=== PATIENT | male | born 1970 | race Caucasian/White ===

== ENCOUNTER 2017-05-27 16:07 | Emergency (ER) | payer OTHER ==
[~2017-05-27] VITALS: Ht 190.5 cm; Wt 89.0 kg
[~2017-05-27 16:07] MED LIST: ALPR2TAB PO; AMPH20TA2 PO; BACTDS PO; CEPH-443 PO; HAL1 PO; HYDR-906 PO; MIRT15TA5 PO; NAPR-688 PO; TRAZ300T15 PO
[2017-05-27 16:13] VITALS: Ht 190.5 cm; Wt 89.0 kg
[2017-05-27 17:16] VITALS: BP 138/90; PULSE 110; RESP 16
[2017-05-27] MEDS ORDERED: HAL1 PO (18:15)
[2017-05-27] MEDS ORDERED: TRAZ300T15 PO (18:15)
[2017-05-27] MEDS ORDERED: MIRT30TA5 PO (18:15)
--- NOTE | 2017-05-27 18:20 | ERD ---
ER Documentation Chief Complaint Date/Time DATE: 05/27/17 TIME: 18:18 Chief Complaint HEARING VOICES , DENIES SI/HI , OUT OF MEDS X 1 WEEK HPI 46-year-old male who presents to the emergency room stating he needs medication refill. The patient states that he was recently kicked out of his sober living facility. Patient does have baseline Tourette's and psychosis. He denies any suicidal or homicidal thoughts. He is asking for refill of Haldol, trazodone, mirtazapine. The patient states that he can go stay with family and friends in the time being. He has no other complaints. No fevers chills chest pain or shortness of breath no headache. ROS All systems reviewed and are negative except as per history of present illness. Medications Home Meds Active Scripts Mirtazapine* (Mirtazapine*) 30 Mg Tablet, 30 MG PO HS for 30 Days, TAB Prov:MARIA ESTHER KESSLER MD 05/27/17 Trazodone Hcl* (Trazodone Hcl*) 300 Mg Tablet, 300 MG PO QHS, #30 TAB Prov:MARIA ESTHER KESSLER MD 05/27/17 Haloperidol* (Haldol*) 1 Mg Tab, 1 MG PO BID for 30 Days, TAB Prov:MARIA ESTHER KESSLER MD 05/27/17 Naproxen* (Naproxen*) 500 Mg Tablet, 500 MG PO BID Y for PAIN, #20 TAB Prov:JAY EDUARDO DO 10/14/16 Hydrocodone/Acetaminophen ([place] 5-325 Tablet) 1 Each Tablet, 1 EACH PO Q6, #14 TAB Prov:JAY EDUARDO DO 10/14/16 Cephalexin* (Keflex*) 500 Mg Capsule, 500 MG PO QID for 10 Days, CAP Prov:JAY EDUARDO DO 10/14/16 Sulfamethoxazole-Trimethoprim* (Bactrim* DS) 800-160 Mg Tab, 1 TAB PO BID for 10 Days, TAB Prov:JAY EDUARDO DO 10/14/16 Reported Medications Haloperidol* (Haldol*) 1 Mg Tab, 1 MG PO BID, TAB 10/14/16 Mirtazapine* (Mirtazapine*) 15 Mg Tablet, 15 MG PO HS, TAB 10/14/16 Alprazolam* (Xanax*) 2 Mg Tablet, 2 MG PO Q8H Y for ANXIETY, TAB 10/14/16 Amphet Vsm-Mvpkjy-G-Amphet (Adderall) 20 Mg Tablet, 20 MG PO DAILY, TAB 10/14/16 Trazodone Hcl* (Trazodone Hcl*) 300 Mg Tablet, 300 MG PO QHS, #30 TAB 10/14/16 Allergies Allergies: Coded Allergies: amoxicillin (Verified Allergy, Mild, 10/11/16) latex (Verified Allergy, Mild, 10/11/16) PMhx/Soc History of Surgery: No (L eye corneal transplant) Anesthesia Reaction: No (unknown ) Hx Neurological Disorder: No Hx Respiratory Disorders: No Hx Cardiac Disorders: No Hx Psychiatric Problems: No 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 Eyes: Pupils equally reactive, EOM intact ENT: Moist mucous membranes Neck: Supple, no lymphadenopathy Respiratory: Lungs clear bilaterally, no distress Cardiovascular: RRR, no murmurs, rubs, or gallops Abdominal: Soft, non-tender, non-distended, no peritoneal signs : Deferred MSK: No edema, no unilateral swelling, 5/5 strength Neurologic: Alert and oriented, moving all extremities, normal speech, no focal weakness, no cerebellar signs Skin: No rash Psych: Stigmata of Tourette's, no suicidal homicidal thoughts Procedures/MDM The patient is stable Tourette's and underlying psychiatric illness without evidence of acute psychosis. He is not a danger to himself or others. He is asking for medication refill. He has a safe place to stay this evening. Initially I was attempting to try to get a social service liaison to see the patient with a social service liaison has gone home today. I can refill 1 month worth of the patient's prescription which is agreeable to him. The patient has no evidence of acute psychosis and no evidence that he requires acute psychiatric evaluation and/or treatment and replacement. We discussed follow up with the patient's primary care doctor within 24 to 48 hours as needed. We also discussed return to the emergency room for worsening symptoms or worsening condition. Outpatient referral: [None required] Discharge Medications: Haldol 1 mg twice daily Trazodone 300 mg nightly Mirtazapine 30 mg nightly Departure Diagnosis: Primary Impression: Encounter for medication refill Condition: Stable Patient Instructions: Medical Screening Exam, Nonurgent Referrals: [facility] YOU HAVE RECEIVED A MEDICAL SCREENING EXAM AND THE RESULTS INDICATE THAT YOU DO NOT HAVE A CONDITION THAT REQUIRES URGENT TREATMENT IN THE EMERGENCY DEPARTMENT. FURTHER EVALUATION AND TREATMENT OF YOUR CONDITION CAN WAIT UNTIL YOU ARE SEEN IN YOUR DOCTORS OFFICE WITHIN THE NEXT 1-2 DAYS. IT IS YOUR RESPONSIBILITY TO MAKE AN APPOINTMENT FOR FOLOW-UP CARE. IF YOU HAVE A PRIMARY DOCTOR --you should call your primary doctor and schedule an appointment IF YOU DO NOT HAVE A PRIMARY DOCTOR YOU CAN CALL OUR PHYSICIAN REFERRAL HOTLINE AT IF YOU CAN NOT AFFORD TO SEE A PHYSICIAN YOU CAN CHOSE FROM THE FOLLOWING [facility] [address] [facility]. [facility] [address] [facility] [facility] [address] [facility] [facility] [address] [facility]. [facility] [address] [facility]. [facility]. [address] [facility]. [facility] YOU HAVE RECEIVED A MEDICAL SCREENING EXAM AND THE RESULTS INDICATE THAT YOU DO NOT HAVE A CONDITION THAT REQUIRES URGENT TREATMENT IN THE EMERGENCY DEPARTMENT. FURTHER EVALUATION AND TREATMENT OF YOUR CONDITION CAN WAIT UNTIL YOU ARE SEEN IN YOUR DOCTORS OFFICE WITHIN THE NEXT 1-2 DAYS. IT IS YOUR RESPONSIBILITY TO MAKE AN APPOINTMENT FOR FOLOW-UP CARE. IF YOU HAVE A PRIMARY DOCTOR --you should call your primary doctor and schedule and appointment IF YOU DO NOT HAVE A PRIMARY DOCTOR YOU CAN CALL OUR PHYSICIAN REFERRAL HOTLINE AT . IF YOU CAN NOT AFFORD TO SEE A PHYSICIAN YOU CAN CHOSE FROM THE FOLLOWING [facility] INSTITUTIONS: [facility] [address] [place] [address] [facility] [address] [place] [address] [facility] [address] [place] [address] Additional Instructions: Call your primary care doctor TOMORROW for an appointment during the next 1 WEEK.Tell the racing secretary that you were referred from this facility.See the doctor sooner or return here if your condition worsens before your appointment time. MARIA ESTHER KESSLER MD May 27, 2017 18:20
== END 2017-05-27 18:31 | disposition home or self-care (01) ==
LOC: E/R 16:07
DX: Z76.0 Encounter for issue of repeat prescription (principal); R40.2252 Coma scale, best verbal response, oriented, at arrival to emergency department; F17.210 Nicotine dependence, cigarettes, uncomplicated; R40.2142 Coma scale, eyes open, spontaneous, at arrival to emergency department; R40.2362 Coma scale, best motor response, obeys commands, at arrival to emergency department
CPT/HCPCS: 99281

== ENCOUNTER 2017-05-29 12:46 | Emergency (ER) | payer OTHER ==
[~2017-05-29] VITALS: Ht 190.5 cm; Wt 100.0 kg
[~2017-05-29 12:46] MED LIST changes: -ALPR2TAB PO; -AMPH20TA2 PO; -BACTDS PO; -CEPH-443 PO; -HYDR-906 PO; -MIRT15TA5 PO; +MIRT30TA5 PO; -NAPR-688 PO
[2017-05-29 13:32] VITALS: Ht 190.5 cm; Wt 100.0 kg
[2017-05-29] MEDS ORDERED: OLANZAPINE (ODT) 5 MG TAB ODT ONE (14:30)
--- NOTE | 2017-05-29 14:46 | ERD ---
ER Documentation Chief Complaint Date/Time DATE: 05/29/17 TIME: 14:45 Chief Complaint REPORTED AUDITORY AND VISUAL HALLUCINATIONS DENIES THOMAS TRUE Patient is a 46-year-old male with Tourette's syndrome who presents with "hearing voices". He has no suicidal or homicidal ideation. He is taking his medication which she had refilled 2 days ago for Haldol but he could not get mirtazapine or trazodone refilled. Upon review of old medical records this is the patient's sixth visit to the ER since 2016. He does not currently have a psychiatrist. ROS All systems reviewed and are negative except as per history of present illness. Medications Home Meds Active Scripts Mirtazapine* (Mirtazapine*) 30 Mg Tablet, 30 MG PO HS for 30 Days, TAB Prov:MARIA ESTHER KESSLER MD 05/27/17 Trazodone Hcl* (Trazodone Hcl*) 300 Mg Tablet, 300 MG PO QHS, #30 TAB Prov:MARIA ESTHER KESSLER MD 05/27/17 Haloperidol* (Haldol*) 1 Mg Tab, 1 MG PO BID for 30 Days, TAB Prov:MARIA ESTHER KESSLER MD 05/27/17 Discontinued Reported Medications Haloperidol* (Haldol*) 1 Mg Tab, 1 MG PO BID, TAB 10/14/16 Mirtazapine* (Mirtazapine*) 15 Mg Tablet, 15 MG PO HS, TAB 10/14/16 Alprazolam* (Xanax*) 2 Mg Tablet, 2 MG PO Q8H Y for ANXIETY, TAB 10/14/16 Amphet Hxy-Ruouns-K-Amphet (Adderall) 20 Mg Tablet, 20 MG PO DAILY, TAB 10/14/16 Trazodone Hcl* (Trazodone Hcl*) 300 Mg Tablet, 300 MG PO QHS, #30 TAB 10/14/16 Discontinued Scripts Naproxen* (Naproxen*) 500 Mg Tablet, 500 MG PO BID Y for PAIN, #20 TAB Prov:JAY EDUARDO DO 10/14/16 Hydrocodone/Acetaminophen ([place] 5-325 Tablet) 1 Each Tablet, 1 EACH PO Q6, #14 TAB Prov:JAY EDUARDO DO 10/14/16 Cephalexin* (Keflex*) 500 Mg Capsule, 500 MG PO QID for 10 Days, CAP Prov:JAY EDUARDO DO 10/14/16 Sulfamethoxazole-Trimethoprim* (Bactrim* DS) 800-160 Mg Tab, 1 TAB PO BID for 10 Days, TAB Prov:JAY EDUARDO DO 10/14/16 Allergies Allergies: Coded Allergies: amoxicillin (Verified Allergy, Mild, 05/27/17) latex (Verified Allergy, Mild, 05/27/17) PMhx/Soc History of Surgery: No (L eye corneal transplant) Anesthesia Reaction: No (unknown ) Hx Neurological Disorder: No Hx Respiratory Disorders: No Hx Cardiac Disorders: No Hx Psychiatric Problems: No 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 Neck: Full range of motion..~ No meningismus. Resp: Clear to auscultation bilaterally Cardio: Regular rate and rhythm, no murmurs Abd: Soft, non tender, non distended. Normal bowel sounds Skin: No petechiae or rashes Back: No midline or flank tenderness Ext: No cyanosis, or edema Neur: Awake and alert Psych: Patient has Tourette syndrome and says that he is hearing voices but he denies suicidal or homicidal ideation Results 24 hrs Current Medications Medications (Trade) Dose Ordered Sig/Ben Route PRN Reason Start Time Stop Time Status Last Admin Dose Admin Olanzapine (Zyprexa Zydis) 5 mg ONCE ONCE ODT 05/29/17 14:30 05/29/17 14:31 DC 05/29/17 14:25 Procedures/MDM Patient is a 46-year-old male presents with hallucinations and hearing voices. He is not suicidal or homicidal however and he appears to have good insight. I do not believe he requires a 5150 hold and I do not think he is a danger to himself or to others. The patient will be discharged home and can follow-up with the local psychiatry resources which I provided to him. He can return for any worsening symptoms. Departure Diagnosis: Primary Impression: Hallucinations Condition: Fair Patient Instructions: Psychosis Referrals: Psychiatry Additional Instructions: Call your primary care doctor TOMORROW for an appointment during the next 1-2 days.See the doctor sooner or return here if your condition worsens before your appointment time. VEE TURCIOS MD May 29, 2017 14:46
== END 2017-05-29 14:40 | disposition home or self-care (01) ==
LOC: E/R 12:46
DX: R44.0 Auditory hallucinations (principal); F17.210 Nicotine dependence, cigarettes, uncomplicated
CPT/HCPCS: 99283